=== PATIENT | female | born 1970 | race Caucasian/White ===

== ENCOUNTER 2019-08-26 08:42 | Day surgery (SDC) | payer OTHER ==
[2019-08-25 15:23] LABS: Absolute Lymphocytes (CBC) 2.5 K/uL (0.7-4.9); Basophils % 0.4 % (0-1.3); Lymphocytes % 22.8 % (15.3-44.8); MPV 8.5 fL (7.6-11.3); RBC Red Blood Cell Count 4.47 M/uL (3.86-4.86)
[2019-08-25 15:31] LABS: Specific Gravity 1.025 (1.005-1.030); Urine Appearance CLEAR; Urine Bilirubin NEGATIVE (NEG); Urine Blood 3+ (NEG); Urine Color YELLOW; Urine Glucose NEGATIVE (NEG); Urine Protein NEGATIVE (NEG); Urine Specific Gravity 1.025 (1.005-1.030); Urine pH 5.5 (5.0-7.0)
[2019-08-25 15:33] LABS: Protime INR 0.99
[2019-08-25 15:41] LABS: Urine Microscopic Reflex ORDER UMIC
[2019-08-25 16:20] LABS: Urine Bacteria <20 /HPF (<20); Urine RBC 20-50 /HPF (NONE SEEN)
[2019-08-25 16:21] LABS: Urine Culture Reflex Order NOT NEEDED
[2019-08-26] MEDS ORDERED: Ringers Lactate 1,000 ML IV ONE (09:19)
[2019-08-26] MEDS ORDERED: SCOPOLAMINE HYDROBROMIDE PATCH TD ONE (09:19)
[2019-08-26] MEDS ORDERED: BUPIVACAINE 0.25% PF 30 ML VIAL ONE (09:42)
[2019-08-26] MEDS ORDERED: propofoL 200 MG/20 ML VIAL IV ONE (09:50)
[2019-08-26] MEDS ORDERED: FENTANYL CITR 100 MCG/2 ML ONE (09:50)
[2019-08-26] MEDS ORDERED: KETOROLAC 30 MG/ML INJ ONE (09:51)
[2019-08-26] MEDS ORDERED: MIDAZOLAM HCL 2 MG/2 ML INJ ONE (09:51)
[2019-08-26] MEDS ORDERED: LIDOCAINE 2% MPF 5 ML VIAL ONE (09:51)
[2019-08-26] MEDS ORDERED: ROCURONIUM 50 MG/5 ML VIAL IV ONE (09:51)
[2019-08-26] MEDS ORDERED: dexAMETHasone 10 MG/ML VIAL ONE (09:51)
[2019-08-26] MEDS ORDERED: ONDANSETRON 4 MG/2 ML VIAL ONE ×3 (09:54→14:40)
[2019-08-26] MEDS: CEFAZOLIN ONE ×2 (09:56→10:04)
[2019-08-26] MEDS: BUPIVACA 0.25%/EPI 0.0005% MDV 50 ML VIAL ONE ×2 (09:56→10:42)
[2019-08-26] MEDS: SWI ONE ×2 (09:56→10:04)
[2019-08-26] MEDS ORDERED: FENTANYL CITR 250 MCG/5 ML ONE (11:08)
[2019-08-26] MEDS: Ringers Lactate 1,000 ML IV ONE ×2 (11:08→11:44)
--- OUTSIDE RECORDS SUMMARY | 2019-08-26 11:18 | XMS REPORT | Summary of Care ---
:1970 Author Organization [facility] - Health Address [address] [place] [address] Care Team Providers Name Role Phone Minerva Garcia Primary Care Provider Encounter Details Date Type Department Care Team Description 05/03/2019 Orders Only [facility] Doctor Unassigned, No [address] [facility] [place] [address] [address] [place] [address] Allergies Not on Filedocumented as of this encounter (statuses as of 05/03/2019) Medications Not on filedocumented as of this encounter (statuses as of 05/03/2019) Active Problems Not on filedocumented as of this encounter (statuses as of 05/03/2019) Social History Tobacco Use Types Packs/Day Years Used Date Never Assessed Sex Assigned at Date Recorded Not on file Job Start Date Occupation Industry Not on file Not on file Not on file Travel History Travel Start Travel End No recent travel history available. documented as of this encounter Last Filed Vital Signs Not on filedocumented in this encounter Plan of Treatment Date Type Specialty Care Team Description 05/03/2019 Office Visit Urology Ruthann Moreland, [employer] [address] [address] [phone] Health Maintenance Due Date Last Done Comments DTaP,Tdap,and Td Vaccines (1 - 1981 Tdap) PAP SMEAR 08/17/1991 Breast Cancer Screening 2010 (MAMMOGRAM) INFLUENZA VACCINE (#1) 2018 PNEUMOCOCCAL 0-64 YEARS COMBINED Aged Out No longer eligible based on SERIES patient's age to complete this topic documented as of this encounter Procedures Procedure Name Priority Date/Time Associated Diagnosis Comme nts ASSIGNMENT OF BENEFITS Routine 05/03/2019 1:59 PM DISASTER RECOVERY MANAGER documented in this encounter Results Not on filedocumented in this encounter Insurance Payer Benefit Plan / Subscriber ID Effective Dates Phone Addre ss Type Group [facility] [id number] [facility] PPO t S documented as of this encounter
--- OUTSIDE RECORDS SUMMARY | 2019-08-26 11:18 | XMS REPORT ---
:1970 Author Organization [facility] Address [address] [place] [address] Dr. [address] [place] [address] Care Team Providers Name Role Phone Unavailable Unavailable Unavailable Problems This patient has no known problems. Allergies, Adverse Reactions, Alerts This patient has no known allergies or adverse reactions. Medications This patient has no known medications. Procedures This patient has no known procedures. Results This patient has no known results.
--- OUTSIDE RECORDS SUMMARY | 2019-08-26 11:19 | XMS REPORT | Summary of Care ---
:1970 Author Organization [facility] - [facility] Address [address] [place] [address] Care Team Providers Name Role Phone Minerva Garcia Primary Care Provider Reason for Visit Reason Comments New Patient Frequent Urination (Routine) Status Reason Specialty Diagnoses / Referred By Referred To Procedures Contact Contact Closed CLEANING MANAGER-FAMILY / Diagnoses incomplete voiding minimal prolapse Jazzmine, Ruthann Pino, Urology Procedures CONSULT UROLOGY NEW VISIT (FIRST TIME) [address] [place], [place] [address] [facility] [address] [address] Phone: [place] [address] [place] [address] Fax: Encounter Details Date Type Department Care Team Description 05/03/2019 Office Visit [facility] Urology- Ruthann Moreland, Uri nary frequency (Primary Dx); [facility] Urinary tract infection without hematuri a, site unspecified; [address] [facility] SUZIE (stress urinary incontin ence, female) [address] [place] [phone] [place] [address] Allergies No Known Allergiesdocumented as of this encounter (statuses as of 05/04/2019) Medications Medication Sig Dispensed Refills Start Date End Date Status lisinopril 5 mg tablet TK 1 T PO QD 0 02/20/2019 Active sulfamethoxazole-trime Take 1 tablet by 0 04/26/2019 Active thoprim 800-160 mg per mouth 2 (two) tablet times daily. documented as of this encounter (statuses as of 05/04/2019) Active Problems No known active problemsdocumented as of this encounter (statuses as of 05/04/2019) Social History Tobacco Use Types Packs/Day Years Used Date Never Smoker Alcohol Use Drinks/Week oz/Week Comments Yes Sex Assigned at Date Recorded Not on file Job Start Date Occupation Industry Not on file Not on file Not on file Travel History Travel Start Travel End No recent travel history available. documented as of this encounter Last Filed Vital Signs Vital Sign Reading Time Taken Comments Blood Pressure 117/77 05/03/2019 2:32 PM WEBSPHERE COMMERCE CONSULTANT Pulse 84 05/03/2019 2:32 PM WEBSPHERE COMMERCE CONSULTANT Temperature 37 C (98.6 F) 05/03/2019 2:32 PM WEBSPHERE COMMERCE CONSULTANT Respiratory Rate 18 05/03/2019 2:32 PM WEBSPHERE COMMERCE CONSULTANT Oxygen Saturation - - Inhaled Oxygen Concentration - - Weight 100.4 kg (221 lb 6.4 oz) 05/03/2019 2:32 PM WEBSPHERE COMMERCE CONSULTANT Height - - Body Mass Index - - documented in this encounter Progress Notes Ruthann Moreland FNP - 05/03/2019 2:00 PM CST Visit Type: Clinic Note / History and Physical Referred by: Dr. Chatman Chief Complaint: urinary frequency and urgency HPI Nancy Tinoco 48 year old female for evaluation of urinary frequency and urgency. She began having frequency, urgency, incomplete emptying and incontinence about 1 month ago. She has started wearing 1-2 pads per day. She saw OBGYN 2 weeks ago and was diagnosed with UTI and started on antibiotics. She has 2 days left of antibiotics. Since starting antibiotics, her symptoms are improving. She has leakingwith sneezing, laughing and coughing. She does not have a history of UTIS or stones. Denies blood inurine, fever, chill or N/V. She is scheduled for hysterectomy for heavy menstrual bleeding. Histories Past Medical History: Diagnosis Date Hypertension Migraine headache Past Surgical History: Procedure Laterality Date SECTION Family History Problem Relation Age of Onset Hypertension Mother Social History Socioeconomic History Marital status: Spouse name: Not on file Number of children: Not on file Years of education: Not on file Highest education level: Not on file Occupational History Not on file Social Needs Financial resource strain: Not on file Food insecurity: Worry: Not on file Inability: Not on file Transportation needs: Medical: Not on file Non-medical: Not on file Tobacco Use Smoking status: Never Smoker Substance and Sexual Activity Alcohol use: Yes Drug use: Not on file Sexual activity: Not on file Lifestyle Physical activity: Days per week: Not on file Minutes per session: Not on file Stress: Not on file Relationships Social connections: Talks on phone: Not on file Gets together: Not on file Attends scientologist service: Not on file Active member of club or organization: Not on file Attends meetings of clubs or organizations: Not on file Relationship status: Not on file Intimate partner violence: Fear of current or ex partner: Not on file Emotionally abused: Not on file Physically abused: Not on file Forced sexual activity: Not on file Other Topics Concern Not on file Social History Narrative Not on file Review of Systems Cardiovascular: Negative. Gastrointestinal: Negative. Genitourinary: Positive for bladder incontinence, urgency and frequency. Musculoskeletal: Negative. Neurological: Negative. Psychiatric/Behavioral: Negative. Physical Exam Constitutional: She appears well-developed and well-nourished. No distress. Neurological: She is alert. Skin: Skin is warm and dry. Psychiatric: She has a normal mood and affect. Vitals reviewed. BP 117/77 (BP Location: Left arm, Patient Position: Sitting, BP CUFF SIZE: Adult Large) | Pulse 84| Temp 37 C (98.6 F) (Oral) | Resp 18 | Wt 221 lb 6.4 oz (100.4 kg) Laboratory Results for NANCY TINOCO ( ) as of 05/04/2019 09:20 Ref. Range 05/03/2019 14:35 POCT PH U Latest Ref Range: 5 - 8 mg/dl 6.0 POCT U SP GRAV Latest Ref Range: 1.005 - 1.025 mg/dl 1.030 (A) POCT U GLU Latest Ref Range: Negative - Negative negative POCT U BLD Latest Ref Range: Negative - Negative negative POCT U KETONE Latest Ref Range: Negative - Negative negative POCT U PROT Latest Ref Range: Negative - Negative 30 POCT U UROBILI Latest Ref Range: 0.2 - 1 mg/dl 0.2 POCT U BILI Latest Ref Range: Negative - Negative negative POCT U NIT Latest Ref Range: Negative - Negative negative POCT U LEUK EST Latest Ref Range: Negative - Negative negative POCT U COLOR Unknown yellow POCT U APPEAR Unknown clear Radiology No new Radiology Procedure Note PVR = 12 ml Assessment/Plan Nancy Tinoco 48 year old female with UTI, SUZIE Continue antibiotics until complete Possible referral to Dr. Rosario to discuss treatment for SUZIE after surgery Continue with surgery as scheduled RTC PRN Surgical Intervention Not applicable. This visit did not involve counseling and coordination that comprised more than 50% of the visit time. Vanna Garza - 05/03/2019 2:00 PM Adriano Tinoco is a 48 year old female comes to clinic independent in ambulation for new patient frequent urine. Pt comes alone . Pt in NAD w/ pain reported 0/10. Pt preferred language is Georgian. Pt. denies fall in last 12 months. Allergies and medications reviewed and updated. [id number] - [place], [place] - [address] [employer] Vanna Eaton 05/03/2019 2:34 PM documented in this encounter Plan of Treatment Health Maintenance Due Date Last Done Comments DTaP,Tdap,and Td Vaccines (1 - 1981 Tdap) PAP SMEAR 08/17/1991 Breast Cancer Screening 2010 (MAMMOGRAM) INFLUENZA VACCINE (#1) 2018 PNEUMOCOCCAL 0-64 YEARS COMBINED Aged Out No longer eligible based on SERIES patient's age to complete this topic documented as of this encounter Procedures Procedure Name Priority Date/Time Associated Comments Diagnosis POCT URINALYSIS AUTO Routine 05/03/2019 2:35 PM Urinary frequ ency Results for this WEBSPHERE COMMERCE CONSULTANT procedure are i n the results section. documented in this encounter Results POCT URINALYSIS, INSTRUMENT (05/03/2019 2:35 PM WEBSPHERE COMMERCE CONSULTANT) Pathologist Sig nature POCT U SP GRAV 1.030 (A) 1.005 - 1.025 mg/dl POCT PH U 6.0 5 - 8 mg/dl POCT U LEUK EST negative Negative - Negative POCT U NIT negative Negative - Negative POCT U PROT 30 Negative - Negative POCT U GLU negative Negative - Negative POCT U KETONE negative Negative - Negative POCT U UROBILI 0.2 0.2 - 1 mg/dl POCT U BILI negative Negative - Negative POCT U BLD negative Negative - Negative POCT U COLOR yellow POCT U APPEAR clear Specimen Urine - URINE, CLEAN CATCH documented in this encounter Visit Diagnoses Diagnosis Urinary frequency - Primary Urinary tract infection without hematuri a, site unspecified SUZIE (stress urinary incontinence, female ) Female stress incontinence documented in this encounter Insurance Payer Benefit Plan / Subscriber ID Effective Dates Phone Addre ss Type Group [facility] [id number] [facility] P[facility] t S documented as of this encounter"
--- OUTSIDE RECORDS SUMMARY | 2019-08-26 11:19 | XMS REPORT | Summary of Care ---
:1970 Author Organization [facility] Address [address] [place] [address] Care Team Providers Name Role Phone Minerva Garcia Primary Care Provider Reason for Visit Reason Comments New Patient Frequent Urination (Routine) Status Reason Specialty Diagnoses / Referred By Referred To Procedures Contact Contact Closed FUNERAL SERVICE LICENSEE-FAMILY / Diagnoses incomplete voiding minimal prolapse Jazzmine, Ruthann Pino, Urology Procedures CONSULT UROLOGY NEW VISIT (FIRST TIME) [address] [place], [place] [address] [facility] [address] [address] Phone: [place] [address] [place] [address] Fax: Encounter Details Date Type Department Care Team Description 05/03/2019 Office Visit [facility] Urology- Ruthann Moreland, Uri nary frequency (Primary Dx); [facility] Urinary tract infection without hematuri a, site unspecified; [address] [facility] SUZIE (stress urinary incontin ence, female) [address] [place] [phone] [place] [address] Allergies No Known Allergiesdocumented as [...] Comments Blood Pressure 117/77 05/03/2019 2:32 PM OFFLINE EDITOR Pulse 84 05/03/2019 2:32 PM OFFLINE EDITOR Temperature 37 C (98.6 F) 05/03/2019 2:32 PM OFFLINE EDITOR Respiratory Rate 18 05/03/2019 2:32 PM OFFLINE EDITOR Oxygen Saturation - - Inhaled Oxygen Concentration - - Weight 100.4 kg (221 lb 6.4 oz) 05/03/2019 2:32 PM OFFLINE EDITOR Height - - Body Mass Index - [...] file Gets together: Not on file Attends episcopalian service: Not on file Active member of [...] pain reported 0/10. Pt preferred language is Lithuanian. Pt. denies fall in last 12 months. Allergies and medications reviewed and updated. [facility] #[id number] - [place], [place] - [address] [employer] Vanna Eaton 05/03/2019 2:34 PM documented in [...] PM Urinary frequ ency Results for this OFFLINE EDITOR procedure are i n the results section. documented in this encounter Results POCT URINALYSIS, INSTRUMENT (05/03/2019 2:35 PM OFFLINE EDITOR) Pathologist Sig nature POCT U SP GRAV [...] Effective Dates Phone Addre ss Type Group [facility] [id number] [facility] P[facility] t S documented as of this encounter"
[2019-08-26] MEDS ORDERED: MORPHINE 10 MG/ML VIAL ONE (13:14)
[2019-08-26] MEDS ORDERED: HYDROMORPHONE HCL 1 MG/ML INJ ONE (14:25)
[2019-08-26] MEDS ORDERED: PROMETHAZINE INJ 25 MG/ML AMP ONE (14:42)
[2019-08-26] MEDS ORDERED: METOCLOPRAMIDE 10 MG/2mL INJ ONE (15:11)
[2019-08-26 16:47] VITALS: BP 126/72; TEMP 96.9; O2SAT 100
[2019-08-26] MEDS ORDERED: HYDROCODONE/APAP 5/325 MG TAB ONE (16:49)
--- NOTE | 2019-08-26 23:53 | OP ---
Date of Procedure: 08/26/2019 Surgeon: Lorraine Chatman MD Accelerator Technician: Steph Tyson. Preoperative Diagnosis: Excessive menstrual bleeding, possible fibroid, adenomyosis, and pelvic pain . Postoperative Diagnoses: Excessive menstrual bleeding, possible fibroid, adenomyosis, and pelvic yash n, adhesions of the uterus and the bladder to the anterior abdominal wall, lower uterine segment and to the lateral ortiz, obliteration of the anterior cul-de-sac. Procedures Performed: Total laparoscopic hysterectomy, bilateral salpingo-oophorectomy, extensive ly sis of adhesions of the uterus and bladder to the anterior abdominal wall to the lower uterine segmen t and to the lateral ortiz, cystoscopy. Anesthesia: General endotracheal. Specimens: Uterus, bilateral tubes and ovaries. Complications: No complications. Drains: No drains. Condition: Patient's condition is stable. Findings: Enlarged uterus about 12-week size with fibroids and possible adenomyosis, fibroids were s mall. Tubes unremarkable as well as ovaries. However, the anterior cul-de-sac was completely oblite rated with adhesions of the , most likely to the anterior abdominal wall to the bladder and t he bladder in the lowest part to the lower part of the uterus where the old hysterotomy was. There w ere adhesions of the lateral broad ligament all the way to the round ligament on both sides, but the left worse than the right side. The lysis of adhesions took at least 50% of the procedure. The patient is a 49-year-old female referred to me from Dr. Garcia for heavy bleeding. After evalu ation of transvaginal ultrasound, small fibroids were found. She was sampled as she is heavyset with hypertension, risk factors for endometrial adenocarcinoma. Her endometrial pathology did not show a ny atypia or malignancy. We discussed about all the treatment options and given her pelvic pain as w ell patient preferred to proceed with hysterectomy. After going through all the alternatives compara tive of the risks and benefits and recovery of the hysterectomy including COVID-19 precautions, risks , the surgery had been rescheduled due to the COVID crisis, then she was brought in today for her pro cedure. Her hypertension was well controlled when she was initially evaluated and later by the patie nt's report slightly elevated, but the systolic max was in the 140s and the diastolic max in the 90s, nothing worse than that, and her primary care had seen and evaluated the patient and appropriately a djusted her lisinopril and the patient had a followup appointment. No long-standing hypertension, no great concern for complications of secondary affects of hypertension. The patient without any sympt oms as well, so proceeded with bringing her to the OR. 3 g of Ancef were given on a weight basis. Description Of Procedure: The patient was taken back to OR, placed in the supine fashion on the oper ating table, general anesthesia was given, placed in the dorsal lithotomy position. Pelvic exam perf ormed. Abdomen, vulva, vagina, and perineum were prepped and draped in a sterile fashion. Time-out was done. Arms tucked by the side. Speculum placed to expose the cervix. Anterior lip grasped with 2 Allis clamps, large VCare was introduced fixed in place for vaginal manipulation. Hill was place d and attached for retrograde filling through cystotubing to a normal saline bag. 1 cm infraumbilical incision made with scalpel using the open laparoscopy technique. Fascia incised, tagged with sutures, 0 Vicryl, and peritoneum entered bluntly, S retractors were placed. Site of en try checked. There was 1 omental adhesion superior to the incision that I had made, no other adhesio ns were noted. The patient was placed in Trendelenburg. 5 mm right and left lower quadrant ports we re placed under direct vision and a 10 mm suprapubic port. After all the ports were placed, thorough inspection of the pelvic cavity was conducted. Ovaries, tubes, all the findings of the pelvic cavit y are as above posteriorly. There were no anatomical distortion of the ureters in the pelvic course and no cul-de-sac endometriosis. The bowel was unremarkable. The bladder and the anterior cul-de-sa c as they were obliterated, plan was to first take these adhesions down in order for me to be able to visualize the broad ligaments and the bladder. With the help of the LigaSure, the adhesions were ta allison down from the uterus to the anterior abdominal wall then going down further the bladder adhesions were taken down the push-spread technique, the uterine vessels were much closer and adhered especial ly the uterine vein to the area where the bladder was adhered, so this was taken down. As this was b eing taken down, there was bleeding from a vein, this was appropriately cauterized and secured before I proceeded, then on coming back to the right side, the broad ligament adhesions were taken down sys tematically from the sidewall and once this was released, the broad ligament was noted to have a thic kened scar as well. So, opened up the lateral part of the broad ligament superior to the round ligam ent then the tube was taken down, infundibulopelvic ligament was isolated and taken down. The course of the ureter, the pelvic brim was noted. Then, once the ovary was detached from the sidewall, the tube was dissected and removed and handed out for permanent pathology. Then, the round ligament was taken down after the posterior aspect of the broad ligament was dissected to some extent and the vess els were taken down. There were large vessels thin-walled, ready to bleed. Once these vessels were optimally cauterized and cut, then the round ligament was taken down in 2 parts after cauterized with the bipolar basket tip as well as the LigaSure. Then, the broad ligament was cauterized and the ves sels were exposed. Opposite side dissection was performed taking down the tube first. Then, utero-o varian ligament was taken down, the round ligament was taken down, then anterior broad ligament disse ction was performed to open up the scar and once this was opened up, the dissection was taken down al l the way to the anterior wall of the vagina. Here, the bladder was dissected away free from the low er segment of the uterus. Once this was dissected down all the way below the level of the VCare cup, which is onto the anterior vaginal wall. On the right side the dissection is much easier, on the le ft side there were dense bladder adhesions to the lower segment of the hysterotomy where her C-sectio n scar was, so this was taken down with the help of sharp dissection with the scissors and with the L igaSure, the cauterization was done on the superficial part of the detrusor muscle where there was bl eeding. Once this was all secured and completely dissected inferiorly exposing the entire cup anteri maria r, then attention was drawn to dissecting vessels. Once these vessels were isolated first on the right side, dissection was taken of the peritoneum all the way to the medial aspect of the incision o f the uterosacral ligaments on both sides. This allowed the ureter to drop to the lateral aspect. T hen vessels taken down with the help of the bipolar basket tip LigaSure on both sides. Then cardinal ligaments were taken down, circumferential colpotomy with a monopolar hook blade. Specimen retrieve d through the vagina, although it was a tight fit, we were able to slide it out. Then, the ovary on the right side was removed using the LigaSure at the base and removing it through the vagina. Thorou gh irrigation and suction were performed. There was 1 aspect of the distal uterosacral on the right side that was bleeding, that was cauterized with the bipolar basket tip. Then, the vaginal cuff was thoroughly irrigated. All the clots were removed and debrided. Then, closure was done with the help of 0 PDS, 2 angle sutures, tied lateral to the angles and 3 [id number] in the center with excel lent apposition of the tissue and large bites. Then, the ureters were visualized. No evidence of el ectrical, mechanical, or thermal injury to them. Thorough irrigation and suction was performed. The bladder appeared to be safe, very superficial cauterization of the bleeding that came from the detru sor muscle while I was dissecting, but there was no concern for any type of bladder injury at this po int. The gas was desufflated. All trocars were removed under direct vision. The fascia at the trocar sit es and the skin were injected on my way in and at the time of exit. The umbilical incision at the fa scia closed with the tag 0 Vicryl sutures tied to each other and injected with 0.25% Marcaine, a tota l of 60 mL was used at the all the port sites. Then, the suprapubic fascial incision closed with the help of simple 0 Vicryl stitch and all 4-0 Vicryl interrupted sutures for the closure of the rest of the incisions. The Hill was removed. Vaginal occluder was removed and cystoscopy with 17-Welsh s sera, normal saline, 30-degree lens, excellent streams of urine from both ureteric orifices. No fili dence of any bladder injury. Bladder was then drained. Vagina was cleaned up. The patient was then taken out from Trendelenburg. Instrument, needle, and sponge counts x3 were correct at the end of t he case. The patient tolerated the procedure well. She will follow up with me in 1 week. She will be started on hormone therapy if she is significantly symptomatic and she will have follow up with Dr Eveline Garcia for her hypertension. KATLYN/GREGORIO Voice ID: [id number] Report ID: [id number]
== END 2019-08-26 17:15 | disposition home or self-care (01) ==
LOC: OR 08:42
PROVIDERS: ATTEND Obstetrics & Gynecology
PROC: 0UT24ZZ Resection of Bilateral Ovaries, Percutaneous Endoscopic Approach (ICD-10-PCS; 2019-08-26)
PROC: 0UT74ZZ Resection of Bilateral Fallopian Tubes, Percutaneous Endoscopic Approach (ICD-10-PCS; 2019-08-26)
PROC: 0UN94ZZ Release Uterus, Percutaneous Endoscopic Approach (ICD-10-PCS; 2019-08-26)
PROC: 0TNB4ZZ Release Bladder, Percutaneous Endoscopic Approach (ICD-10-PCS; 2019-08-26)
PROC: 0UT94ZZ Resection of Uterus, Percutaneous Endoscopic Approach (ICD-10-PCS; principal; 2019-08-26 09:30)
DX: N92.1 Excessive and frequent menstruation with irregular cycle (principal); N94.6 Dysmenorrhea, unspecified; N39.3 Stress incontinence (female) (male); R35.0 Frequency of micturition; D25.9 Leiomyoma of uterus, unspecified; N80.0 Endometriosis of uterus; N83.202 Unspecified ovarian cyst, left side; N83.8 Other noninflammatory disorders of ovary, fallopian tube and broad ligament; N72 Inflammatory disease of cervix uteri; N88.8 Other specified noninflammatory disorders of cervix uteri; F41.9 Anxiety disorder, unspecified; F32.9 Major depressive disorder, single episode, unspecified; N73.6 Female pelvic peritoneal adhesions (postinfective); N32.89 Other specified disorders of bladder; Z80.0 Family history of malignant neoplasm of digestive organs
CPT/HCPCS: 85025; 80048; 36415; 86900; 86850; 81025; 85610; 86901; 88307; 85730; 58571; 49329; 53899; J2704; J2765; J2550; J2250; J3010 ×2; J1100; J1170; J0690; J7120 ×2; J2405 ×3; 81003; 81015